=== PATIENT | male | born 1970 | race Caucasian/White ===

== ENCOUNTER 2016-12-01 11:48 | Emergency (ER) | payer MEDICAID, OTHER ==
--- NOTE | 2016-12-01 13:37 | EDPHY ---
H & P Time Seen by Provider: 12/01/16 13:37 HPI/ROS: CHIEF COMPLAINT: Double vision HISTORY OF PRESENT ILLNESS: Patient developed double vision last night around 18 30. He says he sees double vision primarily vertical E and not horizontally and IV tilts his head to the right the symptoms will go away. Not associated with neck pain. Symptoms are not monocular. He was at primary care clinic and sent here for further evaluation. Not associated with headache or trauma. No eye pain. No history in the last couple of months of ataxia or extremity weakness or speech problem or other neurologic complaint. Symptoms mild currently. REVIEW OF SYSTEMS: Eye: HPI ENT: no sore throat Cardiac: no chest pain or syncope Pulmonary: Not short of breath Abdomen: No nausea or vomiting Musculoskeletal: No neck pain Skin: no rash Neuro: no headache Constitutional: no fever : no urinary symptoms A comprehensive 10 point review of systems is otherwise negative aside from elements mentioned in the history of present illness. PAST MEDICAL HISTORY: Appendectomy Social history: Negative for tobacco or alcohol. Family history: Negative for multiple sclerosis or venous thromboembolism or intracranial aneurysm. General Appearance: Alert and conversant, cooperative. Eyes: No scleral icterus. Patient has normal anterior chambers with ophthalmic scope examination, discs not well seen. Extraocular motion intact including vertical and horizontal movements. Visual álvarez intact to confrontation. Covering an individual eye eliminates the symptom of diplopia. ENT, Mouth: Normal mucous membranes. Respiratory: Normal respiratory effort, breath sounds equal, lungs are clear to auscultation. Cardiovascular: Regular rate and rhythm. Gastrointestinal: Abdomen is soft and non tender. Neurological: Alert and oriented x3. Normally conversant. Face symmetric, normal movement and sensation in all extremities. [id number] intact bilaterally, no pronator drift, negative Romberg. Extraocular motion intact. Skin: Warm and dry, no rashes. Musculoskeletal: No peripheral edema and no joint swelling. Psychiatric: Not agitated. Emergency Department course/MDM: Binocular diplopia. Plan for labs to include glucose, MRI and MR angio of the brain to evaluate for multiple sclerosis, intracranial mass or bleed, intracranial aneurysm. 1535: Negative MRI MRA per Dr. Scott. 1558: Max, discussed case in detail. Recommended discharge with ophthalmology follow-up. 1602: Brayden optho should followup with Theo Scott; the appointment scheduled for tomorrow at 10:15 a.m. , patient says he can make that. Smoking Status: Never smoked Constitutional: Initial Vital Signs Temperature (C) 36.5 C 12/01/16 11:55 Heart Rate 58 L 12/01/16 11:55 Respiratory Rate 18 12/01/16 11:55 Blood Pressure 112/69 12/01/16 11:55 O2 Sat (%) 98 12/01/16 11:55 O2 Delivery Mode Room Air Allergies/Adverse Reactions: No Known Allergies Allergy (Verified 12/01/16 11:55) Home Medications: Medication Instructions Recorded NK [No Known Home Meds] 12/01/16 Medical Decision Making - Diagnostics Imaging Results: Imaging Impressions Brain MRI 12/01/16 13:47 Impression: Normal MRI of the brain without contrast. Results conveyed to Dr. Ha at 3:30 PM. Head MRA 12/01/16 13:47 Impression: Normal MR angiography of the [place]. Results conveyed to Dr. Ha at 3:30 PM. Differential Diagnosis: Differential considered including but not limited to intracranial mass, intracranial bleed, diabetes, multiple sclerosis. - Data Points Laboratory Results: Laboratory Results 12/01/16 14:19 12/01/16 14:19 12/01/16 12/01/16 14:19 14:19 WBC 5.79 10^3/uL 10^3/uL (3.80-9.50) RBC 5.05 10^6/uL 10^6/uL (4.40-6.38) Hgb 16.4 g/dL g/dL (13.7-17.5) Hct 48.0 % % (40.0-51.0) MCV 95.0 fL fL (81.5-99.8) MCH 32.5 pg pg (27.9-34.1) MCHC 34.2 g/dL g/dL (32.4-36.7) RDW 13.4 % % (11.5-15.2) Plt Count 243 10^3/uL 10^3/uL (150-400) MPV 10.9 fL fL (8.7-11.7) Neut % (Auto) 66.0 % % (39.3-74.2) Lymph % (Auto) 25.4 % % (15.0-45.0) [place] % (Auto) 6.4 % % (4.5-13.0) Eos % (Auto) 1.4 % % (0.6-7.6) Baso % (Auto) 0.5 % % (0.3-1.7) Nucleat RBC Rel Count 0.0 % % (0.0-0.2) Absolute Neuts (auto) 3.82 10^3/uL 10^3/uL (1.70-6.50) Absolute Lymphs (auto) 1.47 10^3/uL 10^3/uL (1.00-3.00) Absolute Monos (auto) 0.37 10^3/uL 10^3/uL (0.30-0.80) Absolute Eos (auto) 0.08 10^3/uL 10^3/uL (0.03-0.40) Absolute Basos (auto) 0.03 10^3/uL 10^3/uL (0.02-0.10) Absolute Nucleated RBC 0.00 10^3/uL 10^3/uL (0-0.01) Immature Gran % 0.3 % % (0.0-1.1) Immature Gran # 0.02 10^3/uL 10^3/uL (0.00-0.10) Sodium 139 mEq/L mEq/L (134-144) Potassium 4.3 mEq/L mEq/L (3.5-5.2) Chloride 103 mEq/L mEq/L (97-110) Carbon Dioxide 24 mEq/l mEq/l (22-31) Anion Gap 12 mEq/L mEq/L (8-16) BUN 13 mg/dL mg/dL (7-23) Creatinine 1.0 mg/dL mg/dL (0.7-1.3) Estimated GFR > 60 Glucose 89 mg/dL mg/dL (70-100) Calcium 9.9 mg/dL mg/dL (8.5-10.4) Departure - Departure Disposition: Home, Routine, Self-Care Clinical Impression: Diplopia Condition: Good Instructions: Diplopia (ED) Referrals: Umang Townsend MD [Primary Care Provider] - As per Instructions Theo Scott MD [Medical Doctor] - 12/02/16 10:15 am
[2016-12-01 14:25] LABS: % IMMATURE GRANULYOCYTES 0.3 % (0.0-1.1); ABSOLUTE IMMATURE GRANULOCYTES 0.02 10^3/uL (0.00-0.10); ADD DIFF? NO; ADD MORPH? NO; ADD SCAN? NO; ATYPICAL LYMPHOCYTE FLAG 0 (0-99); FRAGMENT RBC FLAG 0 (0-99); HEMOGLOBIN 16.4 g/dL (13.7-17.5); LEFT SHIFT FLG 0 (0-99); LIPEMIA HEMOLYSIS FLAG 90 (0-99); MEAN CELL HEMOGLOBIN 32.5 pg (27.9-34.1); MEAN CELL HEMOGLOBIN CONCENTR. 34.2 g/dL (32.4-36.7); MEAN PLATELET VOLUME 10.9 fL (8.7-11.7); PLATELET CLUMPS FLAG 20 (0-99); PLATELET COUNT 243 10^3/uL (150-400); RED BLOOD CELL COUNT 5.05 10^6/uL (4.40-6.38); RED CELL DISTRIBUTION WIDTH 13.4 % (11.5-15.2)
[2016-12-01 14:40] LABS: ANION GAP 12 mEq/L (8-16); CALCIUM 9.9 mg/dL (8.5-10.4); CARBON DIOXIDE 24 mEq/l (22-31); CHLORIDE 103 mEq/L (97-110); GLOMERULAR FILTRATION RATE > 60; GLUCOSE 89 mg/dL (70-100); POTASSIUM 4.3 mEq/L (3.5-5.2); SODIUM 139 mEq/L (134-144)
[2016-12-01 16:40] VITALS: BP 118/77; PULSE 90; RESP 16; TEMP 98.2; O2SAT 97
== END 2016-12-01 16:40 | disposition home or self-care (01) ==
DX: H53.2 Diplopia (principal)